=== PATIENT | male | born 1945 | race Caucasian/White ===

== ENCOUNTER 2017-12-08 14:20 | Inpatient (IN) | payer MEDICARE ==
[2017-12-08] VITALS (14 sets, daily range): BP systolic 92–136; BP diastolic 53–67; PULSE 64–86; RESP 14–18; TEMP 99.3; O2SAT 96–100
[~2017-12-08] VITALS: Ht 180.3 cm; Wt 87.5 kg
[2017-12-08] MEDS ORDERED: MIDAZOLAM HCL 5 MG/ML VIAL (1 ML) ONE (14:28)
[2017-12-08 15:06] LABS: AUTOMATED NEUTROPHIL # 12.4 TH/MM3 (1.8-7.7); BASOPHIL # 0.1 TH/MM3 (0-0.2); BASOPHIL % 0.4 % (0.0-2.0); EOSINOPHIL % 0.3 % (0.0-4.0); HEMATOCRIT 42.3 % (39.0-51.0); HEMOGLOBIN 14.3 GM/DL (13.0-17.0); LYMPHOCYTE # 1.2 TH/MM3 (1.0-4.8); MEAN CELL VOLUME 87.1 FL (80.0-100.0); MEAN CORPUSCULAR HEMOGLOBIN 29.4 PG (27.0-34.0); MEAN CORPUSCULAR HGB CONC 33.8 % (32.0-36.0); MEAN PLATELET VOLUME 8.7 FL (7.0-11.0); MONO % 5.2 % (0.0-8.0); MONOCYTE # 0.7 TH/MM3 (0-0.9); NEUT % 86.1 % (16.0-70.0); PLATELET COUNT 173 TH/MM3 (150-450); RED BLOOD COUNT 4.86 MIL/MM3 (4.50-5.90); RED CELL DISTRIBUTION WIDTH 13.7 % (11.6-17.2); WHITE BLOOD COUNT 14.4 TH/MM3 (4.0-11.0)
--- NOTE | 2017-12-08 15:15 | RADRPT ---
EXAM DATE/TIME: 12/08/2017 15:02 [facility] COMPARISON: No previous studies available for comparison. INDICATIONS : Post intubation. MEDICAL HISTORY : Unresponsive. SURGICAL HISTORY : Unresponsive. ENCOUNTER: Initial ACUITY: 1 day PAIN SCORE: Non-responsive. LOCATION: Bilateral chest FINDINGS: Endotracheal tube is present with tip at the alena. Retraction by couple of centimeters would be sug gested. Nasogastric tube coils in the stomach. Perihilar and basilar parenchymal opacities. Cardiac c ontour is grossly satisfactory CONCLUSION: ET tube at the alena. Mild basilar and perihilar infiltrates. Winston Harding MD on December 08, 2017 at 15:13 Board Certified Radiologist. This report was verified electronically.
[2017-12-08 15:22] LABS: ALBUMIN 3.6 GM/DL (3.4-5.0); ALT (GPT) 79 U/L (12-78); AST (GOT) 78 U/L (15-37); BICARBONATE 25.8 MEQ/L (21.0-32.0); BLOOD UREA NITROGEN 15 MG/DL (7-18); CALCIUM 8.5 MG/DL (8.5-10.1); CHLORIDE 107 MEQ/L (98-107); CREATININE 0.88 MG/DL (0.60-1.30); GLOMERULAR FILTRATION RATE 86 ML/MIN (>89); GLUCOSE,RANDOM 139 MG/DL (74-106); SODIUM (NA) 140 MEQ/L (136-145)
[2017-12-08 15:27] LABS: ALKALINE PHOSPHATASE 113 U/L (45-117); TOTAL BILIRUBIN ADULT 0.9 MG/DL (0.2-1.0); TOTAL PROTEIN 7.5 GM/DL (6.4-8.2); TROPONIN I 0.37 NG/ML (0.02-0.05)
[2017-12-08] MEDS ORDERED: GABA300C5 PO (15:38)
[2017-12-08] MEDS ORDERED: LEVO75TA3 PO (15:38)
--- NOTE | 2017-12-08 15:41 | RADRPT ---
EXAM DATE/TIME: 12/08/2017 15:17 [facility] COMPARISON: No previous studies available for comparison. INDICATIONS : Trauma, fall from roof today. RADIATION DOSE: 37.71 CTDIvol (mGy) MEDICAL HISTORY : Non-responsive. SURGICAL HISTORY : Non-responsive. ENCOUNTER: Initial ACUITY: 1 day PAIN SCALE: Non-responsive LOCATION: Bilateral head TECHNIQUE: Multiple contiguous axial images were obtained of the head. Using automated exposure control and adj ustment of the mA and/or kV according to patient size, radiation dose was kept as low as reasonably a chievable to obtain optimal diagnostic quality images. DICOM format image data is available electro nically for review and comparison. FINDINGS: The ventricles are symmetric and normal. Incidental cavum septum pellucida U. There is no evidence of abnormal extra-axial fluid collection, mass or hemorrhage. No brain edema is noted. There is nothing to suggest acute infarction. The there is slight buckling of the nasal bone which may reflect acute fracture injury. There is some layering fluid in the maxillary sinuses and ethmoid and sphenoid air c ells. There is no evidence of skull fracture CONCLUSION: No acute intracranial injury. Nasal bone is fractured and there is fluid in the sinuses. Winston Harding MD on December 08, 2017 at 15:37 Board Certified Radiologist. This report was verified electronically.
[2017-12-08] MEDS ORDERED: MIDAZOLAM HCL 5 MG/ML VIAL (1 ML) IV PUSH ONE (15:45)
[2017-12-08] MEDS: PROPOFOL 1000 MG/100 ML INJ 100 ML IV PRN (16:02)
[2017-12-08 16:19] LABS: PROTHROMBIN TIME - PATIENT 10.5 SEC (9.8-11.6)
[2017-12-08] MEDS ORDERED: MISCELLANEOUS NURSING INFORMATION XX SCH (17:00)
[2017-12-08] MEDS ORDERED: CHLORHEXIDINE GLUCONATE 2 % 1 PACK (2 CLOTHS) TOP PRN (17:00)
[2017-12-08] MEDS ORDERED: ONDANSETRON HCL 4 MG/2 ML VIAL IV PUSH PRN (17:00)
[2017-12-08] MEDS ORDERED: MORPHINE SULFATE 4 MG/ML INJ IV PUSH PRN (17:00)
[2017-12-08] MEDS ORDERED: ENALAPRILAT 1.25 MG/ML VIAL IV PUSH PRN (17:00)
[2017-12-08] MEDS ORDERED: SODIUM CHLORIDE 0.9% FLUSH 10 ML FLUSH IV FLUSH PRN (17:00)
[2017-12-08] MEDS: SODIUM CHLOR 0.9% 1000 ML INJ 1,000 ML IV SCH (17:13)
[2017-12-08] MEDS: PANTOPRAZOLE SODIUM 40 MG VIAL IVP SCH (17:13)
--- NOTE | 2017-12-08 17:29 | PD ---
HPI Chief Complaint: Trauma (Alert) Time Seen by Provider: 14:38 Travel History International Travel<30 days: No Contact w/Intl Traveler<30days: No Traveled to known affect area: No History of Present Illness HPI Patient is a 72-year-old male who is brought in by EMS as a transfer from an outside hospital. Patient was intubated at the outside facility and therefore cannot provide any history. His reports that he was feeling in his normal state of health today. She was in the house when all of a sudden she heard him yelling and when she went out he was on the ground. She says that he told her he was almost at the roof when the ladder he was on slipped and he fell backwards hitting his head. She says he complained of a headache and neck pain and had some bleeding from his head. She drove him to the hospital, because he refused to let her call 911. Apparently once at the hospital, he had an unresponsive episode in the waiting room. He was intubated due to this episode. CAT scans were performed at the outside facility and he was transferred here. [facility] Past Medical History Thyroid Disease: Yes ?: Not Social History Alcohol Use: No Tobacco Use: No Substance Use: No Allergies-Medications (Allergen,Severity, Reaction): Coded Allergies: No Known Allergies (Unverified , 12/08/17) Reported Meds & Prescriptions Reported Meds & Active Scripts Active Reported Gabapentin 300 Mg Cap 300 Mg PO HS Levothyroxine (Levothyroxine Sodium) 75 Mcg Tab 75 Mcg PO DAILY Review of Systems ROS Limitations: Clinical Condition, Intubated Physical Exam Narrative GENERAL: Intubated and sedated. SKIN: Focused skin assessment warm/dry. 5 inch linear laceration to the occiput. HEAD: Atraumatic. Normocephalic. EYES: Pupils equal and round and reactive. No scleral icterus. ENT: Mucous membranes pink and moist. NECK: Trachea midline. No JVD. Cervical collar in place. CARDIOVASCULAR: Regular rate and rhythm. No murmur appreciated. RESPIRATORY: No accessory muscle use. Clear to auscultation. Breath sounds equal bilaterally. GASTROINTESTINAL: Abdomen soft, non-tender, nondistended. MUSCULOSKELETAL: No obvious deformities. No clubbing. No cyanosis. No edema. NEUROLOGICAL: Patient intubated. Seem to move all of his extremities. Data Data Last Documented VS Vital Signs Date Time Temp Pulse Resp B/P (MAP) Pulse Ox O2 Delivery O2 Flow Rate FiO2 12/08/17 16:29 77 18 102/57 (72) 96 Ventilator 100 Orders Orders Midazolam Inj (Versed Inj) (12/08/17 14:28) Electrocardiogram (12/08/17 ) Complete Blood Count With Diff (12/08/17 14:38) Comprehensive Metabolic Panel (12/08/17 14:38) Troponin I (12/08/17 14:38) Lactic Acid (12/08/17 14:38) Creatine Kinase (Cpk) (12/08/17 14:38) Chest, Single Ap (12/08/17 ) Act Partial Throm Time (Ptt) (12/08/17 14:38) Prothrombin Time / Inr (Pt) (12/08/17 14:38) Ct Brain W/O Iv Contrast(Rout) (12/08/17 ) CKMB (12/08/17 14:50) CKMB% (12/08/17 14:50) Midazolam Inj (Versed Inj) (12/08/17 15:45) Propofol 1000 Mg/100 Ml Inj (Diprivan 10 (12/08/17 15:45) Arterial Blood Gas (Abg) (12/08/17 15:58) Admit To Inpatient (12/08/17 ) Vital Signs (Adult) DINO.QSHIFT (12/08/17 16:46) Intake + Output DINO.Q8H (12/08/17 16:46) Neuro Checks DINO.Q1H (12/08/17 16:46) Diet Npo (12/08/17 Dinner) Scd / Varghese / Foot Pump DINO.QSHIFT (12/08/17 16:46) ^ Cervical Collar (12/08/17 16:46) Instruction (12/08/17 16:46) Complete Blood Count With Diff (12/09/17 06:00) Comprehensive Metabolic Panel (12/09/17 06:00) Chest, Single Ap (12/09/17 ) Sodium Chlor 0.9% 1000 Ml Inj (Ns 1000 M (12/08/17 16:46) Sodium Chloride 0.9% Flush (Ns Flush) (12/08/17 17:00) Morphine Inj (Morphine Inj) (12/08/17 17:00) Enalaprilat Inj (Vasotec Inj) (12/08/17 17:00) Ondansetron Inj (Zofran Inj) (12/08/17 17:00) Pantoprazole Inj (Protonix Inj) (12/08/17 17:00) Consult Engraver Seals (12/08/17 ) ^ Initiate Protocol (12/08/17 16:46) Instruction (12/08/17 16:46) Misc Nursing Information (12/08/17 17:00) Chlorhexidine 2% Cloth (Chlorhexidine 2% (12/09/17 04:00) Chlorhexidine 2% Cloth (Chlorhexidine 2% (12/08/17 17:00) Mrsa Pcr Surveillance (12/08/17 16:46) Inpatient Certification (12/08/17 ) Consult Archie Gts (12/08/17 ) Mri Brain W&W/O Contrast (12/08/17 ) Admit Order (Ed Use Only) (12/08/17 ) Labs Laboratory Tests Test 12/08/17 14:50 12/08/17 15:50 12/08/17 15:58 White Blood Count 14.4 TH/MM3 Red Blood Count 4.86 MIL/MM3 Hemoglobin 14.3 GM/DL Hematocrit 42.3 % Mean Corpuscular Volume 87.1 FL Mean Corpuscular Hemoglobin 29.4 PG Mean Corpuscular Hemoglobin Concent 33.8 % Red Cell Distribution Width 13.7 % Platelet Count 173 TH/MM3 Mean Platelet Volume 8.7 FL Neutrophils (%) (Auto) 86.1 % Lymphocytes (%) (Auto) 8.0 % Monocytes (%) (Auto) 5.2 % Eosinophils (%) (Auto) 0.3 % Basophils (%) (Auto) 0.4 % Neutrophils # (Auto) 12.4 TH/MM3 Lymphocytes # (Auto) 1.2 TH/MM3 Monocytes # (Auto) 0.7 TH/MM3 Eosinophils # (Auto) 0.0 TH/MM3 Basophils # (Auto) 0.1 TH/MM3 CBC Comment AUTO DIFF Differential Comment AUTO DIFF CONFIRMED Platelet Estimate NORMAL Platelet Morphology Comment CLUMPED Blood Urea Nitrogen 15 MG/DL Creatinine 0.88 MG/DL Random Glucose 139 MG/DL Total Protein 7.5 GM/DL Albumin 3.6 GM/DL Calcium Level 8.5 MG/DL Alkaline Phosphatase 113 U/L Aspartate Amino Transf (AST/SGOT) 78 U/L Alanine Aminotransferase (ALT/SGPT) 79 U/L Total Bilirubin 0.9 MG/DL Sodium Level 140 MEQ/L Potassium Level 3.6 MEQ/L Chloride Level 107 MEQ/L Carbon Dioxide Level 25.8 MEQ/L Anion Gap 7 MEQ/L Estimat Glomerular Filtration Rate 86 ML/MIN Lactic Acid Level 1.6 mmol/L Total Creatine Kinase 331 U/L Creatine Kinase MB 6.1 NG/ML Creatine Kinase MB % 1.8 % Troponin I 0.37 NG/ML Prothrombin Time 10.5 SEC Prothromb Time International Ratio 1.0 RATIO Activated Partial Thromboplast Time 18.7 SEC Blood Gas Puncture Site RT RADIAL Blood Gas Patient Temperature 98.6 Blood Gas HCO3 25 mmol/L Blood Gas Base Excess 0.6 mmol/L Blood Gas Oxygen Saturation 97 % Arterial Blood pH 7.39 Arterial Blood Partial Pressure CO2 43 mmHg Arterial Blood Partial Pressure O2 198 mmHG Arterial Blood Oxygen Content 19.5 Vol % Arterial Blood Carboxyhemoglobin 0.2 % Arterial Blood Methemoglobin 1.4 % Blood Gas Hemoglobin 14.0 G/DL Oxygen Delivery Device VENTILATOR Blood Gas Ventilator Setting Blood Gas Inspired Oxygen 100 % MDM Medical Decision Making Medical Screen Exam Complete: Yes Emergency Medical Condition: Yes Interpretation(s) ECG shows sinus rhythm at a rate of 93, no ST elevation or depression Differential Diagnosis Traumatic injury versus stroke versus ND versus electrolyte abnormality versus infection Narrative Course Patient is a 72-year-old male who is brought in as a transfer from an outside facility. Patient was intubated at the outside facility. On arrival, sedation was stopped during the transfer and he was seen at patient moved all of his extremities. Patient originally was on a Cardene drip as well as a propofol drip from the outside facility. The Cardene drip was discontinued on arrival as patient was hypotensive. He never became hypertensive again. He was given Versed for sedation and continued on propofol. ET tube was too deep, this was pulled back. CT head reordered. Repeat scan shows a nasal bone fracture, no other acute abnormalities. Labs here show an elevated troponin. This was not done at the previous hospital , so nothing to compare to. Laceration repaired. Patient admitted for further management. Procedures Procedure Narrative LACERATION LOCATION: Back of head LENGTH: 5 inches NUMBER OF STITCHES/GENEVIEVE: 6 REPAIR: The area of the laceration was prepped with Betadine and sterilely draped. The wound was copiously irrigated and explored without evidence of foreign body, tendon injury or neurovascular injury. The wound was closed using genevieve. This was a single layer repair. Patient tolerated the procedure well. Diagnosis Primary Impression: Trauma Additional Impression: Altered mental status Qualified Codes: R41.82 - Altered mental status, unspecified Admitting Information Admitting Physician Requests: Admit Jenn Lainez MD Dec 08, 2017 17:29
[2017-12-08] MEDS ORDERED: fentaNYL DRIP 250 ML IV PRN (18:45)
--- NOTE | 2017-12-08 19:12 | RADRPT ---
EXAM DATE/TIME: 12/08/2017 18:39 [facility] COMPARISON: CT BRAIN W/O CONTRAST, December 08, 2017, 15:17. INDICATIONS : Fall, head trauma. MEDICAL HISTORY : None. SURGICAL HISTORY : Cholecystectomy. Rotator cuff, right knee repair. ENCOUNTER: Initial ACUITY: 1 day PAIN SCORE: 0/10 LOCATION: cranial TECHNIQUE: Multiplanar, multisequence MRI of the brain was performed without contrast. FINDINGS: CEREBRUM: The ventricles are normal for age. No evidence of midline shift, mass lesion, hemorrhage or acute in farction. No extraaxial fluid collections are seen. The pituitary gland and suprasellar cistern are normal in configuration. WHITE MATTER: Mild patchy chronic flair signal abnormality in the periventricular white matter of the posterolatera l hemispheres. POSTERIOR FOSSA: The cerebellum and brainstem are intact. The 4th ventricle is midline. The cerebellopontine angle is unremarkable. The cerebellar tonsils are normal in position. DIFFUSION IMAGING: No focal areas of restricted diffusion are seen. No evidence of acute infarction. EXTRACRANIAL: There is a posterior parietal scalp laceration post stapling. An approximately 13 mm thick adjacent s calp hematoma is present. The skull appears intact. CONCLUSION: 1. High/posterior parietal scalp laceration and scalp hematoma. 2. No acute intracranial abnormality. Intact skull. 3. Mild chronic white matter changes. Winston Butt MD on December 08, 2017 at 19:07 Board Certified Radiologist. This report was verified electronically.
--- NOTE | 2017-12-08 20:57 | HHI.CCPN ---
Subjective Brief History 72 year old fell of the ladder this p.m. Went to [facility] and there collapsed. Was intubated ventilated and transferred to us under auspices of trauma and head injury. Patrient does not have any acute intracranial abnormality on either CT or MRI. He is moving all extremities on sedation decrease, but doesn't follow commands. CKMB up and troponin elevated. I believe this to have been likely and originally a cardiac event. Spoken to DR Vargas. EKG / ECHO pending. Will keep on the vent till we get a better picture. 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 Objective Vital Signs Date Time Temp Pulse Resp B/P (MAP) Pulse Ox O2 Delivery O2 Flow Rate FiO2 12/08/17 19:37 40 12/08/17 19:30 100 12/08/17 18:45 71 18 135/62 (86) Ventilator Result Diagram: 12/08/17 1450 12/08/17 1450 Other Results Laboratory Tests Test 12/08/17 15:58 Blood Gas Puncture Site RT RADIAL Blood Gas Patient Temperature 98.6 Blood Gas HCO3 25 mmol/L (22-26) Blood Gas Base Excess 0.6 mmol/L (-2-2) Blood Gas Oxygen Saturation 97 % (90-100) Arterial Blood pH 7.39 (7.380-7.420) Arterial Blood Partial Pressure CO2 43 mmHg (38-42) Arterial Blood Partial Pressure O2 198 mmHG (61-120) Arterial Blood Oxygen Content 19.5 Vol % (12.0-20.0) Arterial Blood Carboxyhemoglobin 0.2 % (0-4) Arterial Blood Methemoglobin 1.4 % (0-2) Blood Gas Hemoglobin 14.0 G/DL (12.0-16.0) Oxygen Delivery Device VENTILATOR Blood Gas Ventilator Setting Blood Gas Inspired Oxygen 100 % Imaging Last [address] 12/08/17 0000 Signed Impressions: Service Date/Time: Friday, December 08, 2017 15:17 - CONCLUSION: No acute intracranial injury. Nasal bone is fractured and there is fluid in the sinuses. Winston Harding MD Chest X-Ray 12/08/17 0000 Signed Impressions: Service Date/Time: Friday, December 08, 2017 15:02 - CONCLUSION: ET tube at the alena. Mild basilar and perihilar infiltrates. Winston Harding MD Brain MRI 12/08/17 0000 Signed Impressions: Service Date/Time: Friday, December 08, 2017 18:39 - CONCLUSION: 1. High/posterior parietal scalp laceration and scalp hematoma. 2. No acute intracranial abnormality. Intact skull. 3. Mild chronic white matter changes. Winston Butt MD Exam [employer] Patient intubated ventilated and sedated MRI of the brain and CT of the brain are negative for acute injury or acute pathology While the patient had fallen off the ladder the only head injury is a laceration of the skin Patient currently on propofol and fentanyl until we figure out the reason why patient collapsed and became unconscious Hemodynamic/Cardiac Hemodynamically patient is currently stable Elevated CK-MB and troponins Suspect a cardiac event either in form of arrhythmia, sick sinus syndrome or possible [place] Discussed with Dr. Serene Vargas and cardiac full workup is pending Pulmonary/Respiratory Bilateral breath sounds lungs clear Patient on assist control ventilation 50% FiO2 with very good PO2 FiO2 gradient Abdomen/GI Nutrition Abdomen soft no signs of injuries no rebound no guarding or masses Renal/I&O Renal function well-preserved Hematologic Slight elevation of the white count with left shift but hemoglobin stable Assessment and Plan Attestation Patient currently in progress of workup but it all appears to be medical in nature as far as we can see right now Barring any surprises will extubate patient in the morning Critical care time 42 minutes Basilio Banda MD Dec 08, 2017 20:57
[2017-12-08 22:55] LABS: TROPONIN I 1.13 NG/ML (0.02-0.05)
[2017-12-09] VITALS (14 sets, daily range): BP systolic 102–148; BP diastolic 51–65; PULSE 62–79; RESP 14–26; TEMP 98.7–99.8; O2SAT 92–100
[2017-12-09] MEDS: SODIUM CHLOR 0.9% 1000 ML INJ 1,000 ML IV SCH (02:46)
[2017-12-09] MEDS: PROPOFOL 1000 MG/100 ML INJ 100 ML IV PRN (03:52)
[2017-12-09] MEDS ORDERED: CHLORHEXIDINE GLUCONATE 2 % 1 PACK (2 CLOTHS) TOP SCH (04:00)
[2017-12-09 04:36] LABS: AUTOMATED NEUTROPHIL # 7.6 TH/MM3 (1.8-7.7); BASOPHIL % 0.3 % (0.0-2.0); EOSINOPHIL % 0.2 % (0.0-4.0); HEMATOCRIT 40.2 % (39.0-51.0); HEMOGLOBIN 13.5 GM/DL (13.0-17.0); LYMPH % 14.3 % (9.0-44.0); LYMPHOCYTE # 1.4 TH/MM3 (1.0-4.8); MEAN CELL VOLUME 88.2 FL (80.0-100.0); MEAN CORPUSCULAR HEMOGLOBIN 29.7 PG (27.0-34.0); MEAN CORPUSCULAR HGB CONC 33.6 % (32.0-36.0); MEAN PLATELET VOLUME 8.3 FL (7.0-11.0); MONO % 7.4 % (0.0-8.0); MONOCYTE # 0.7 TH/MM3 (0-0.9); NEUT % 77.8 % (16.0-70.0); PLATELET COUNT 159 TH/MM3 (150-450); RED BLOOD COUNT 4.56 MIL/MM3 (4.50-5.90); RED CELL DISTRIBUTION WIDTH 13.9 % (11.6-17.2); WHITE BLOOD COUNT 9.7 TH/MM3 (4.0-11.0)
[2017-12-09 05:00] LABS: ALBUMIN 3.2 GM/DL (3.4-5.0); AST (GOT) 43 U/L (15-37); BICARBONATE 26.5 MEQ/L (21.0-32.0); BLOOD UREA NITROGEN 13 MG/DL (7-18); CALCIUM 8.5 MG/DL (8.5-10.1); CHLORIDE 108 MEQ/L (98-107); CREATININE 0.81 MG/DL (0.60-1.30); GLOMERULAR FILTRATION RATE 94 ML/MIN (>89); GLUCOSE,RANDOM 98 MG/DL (74-106); SODIUM (NA) 142 MEQ/L (136-145)
[2017-12-09 05:07] LABS: ALKALINE PHOSPHATASE 88 U/L (45-117); ALT (GPT) 60 U/L (12-78); TOTAL BILIRUBIN ADULT 1.1 MG/DL (0.2-1.0); TOTAL PROTEIN 6.8 GM/DL (6.4-8.2)
[2017-12-09 05:20] LABS: TROPONIN I 0.74 NG/ML (0.02-0.05)
--- NOTE | 2017-12-09 05:28 | RADRPT ---
EXAM DATE/TIME: 12/09/2017 04:36 [facility] COMPARISON: CHEST SINGLE AP, December 08, 2017, 15:02. INDICATIONS : Shortness of breath. MEDICAL HISTORY : None. SURGICAL HISTORY : Cholecystectomy. Rotator cuff, right knee repair. ENCOUNTER: Subsequent ACUITY: 2 days PAIN SCORE: Non-responsive. LOCATION: Bilateral chest FINDINGS: The cardiac silhouette is normal in transverse diameter. There is prominence of the central pulmonary vasculature with indistinct vascular margins compatible with vascular congestion but no evidence of overt failure. Endotracheal tube is in good position above the alena. CONCLUSION: 1. Cardiomegaly and findings of vascular congestion without overt failure. The findings have worsened when compared with the prior examination. Jg Watson MD on December 09, 2017 at 5:26 Board Certified Radiologist. This report was verified electronically.
--- NOTE | 2017-12-09 05:58 | HHI.CCPN ---
Subjective Brief History 72 year old fell of the ladder this p.m. Went to [facility] and there collapsed. Was intubated ventilated and transferred to us under auspices of trauma and head injury. Patrient does not have any acute intracranial abnormality on either CT or MRI. He is moving all extremities on sedation decrease, but doesn't follow commands. CKMB up and troponin elevated. I believe this to have been likely and originally a cardiac event. Spoken to DR Vargas. EKG / ECHO pending. Will keep on the vent till we get a better picture. Medical principal cloud architect was to busy to accept the consult tonight due to several codes. 24 Hour Review/Hospital Course 12/09/2017 Patient has been stable throughout the night Remains sedated on propofol fentanyl Hemodynamically stable As noted in my initial impression this patient had a cardiac event and then fell off the ladder rather than the other way around Rising troponin levels Discussed with Dr. Vargas Patient remains on assist control ventilation and will extubate patient today Renal function well-preserved Discussed with his Objective Vital Signs Date Time Temp Pulse Resp B/P (MAP) Pulse Ox O2 Delivery O2 Flow Rate FiO2 12/09/17 05:30 98 40 12/09/17 04:00 63 12/09/17 04:00 99.6 14 102/51 (68) 12/08/17 18:45 Ventilator Intake and Output 12/09/17 12/09/17 12/10/17 08:00 16:00 00:00 Intake Total 1100 ml Balance 1100 ml Result Diagram: 12/09/17 0354 12/09/17 0354 Other Results Laboratory Tests Test 12/08/17 15:58 12/08/17 22:47 Blood Gas Puncture Site RT RADIAL RT RADIAL Blood Gas Patient Temperature 98.6 98.6 Blood Gas HCO3 25 mmol/L (22-26) 24 mmol/L (22-26) Blood Gas Base Excess 0.6 mmol/L (-2-2) 0.5 mmol/L (-2-2) Blood Gas Oxygen Saturation 97 % (90-100) 96 % (90-100) Arterial Blood pH 7.39 (7.380-7.420) 7.42 (7.380-7.420) Arterial Blood Partial Pressure CO2 43 mmHg (38-42) 39 mmHg (38-42) Arterial Blood Partial Pressure O2 198 mmHG (61-120) 113 mmHg (61-120) Arterial Blood Oxygen Content 19.5 Vol % (12.0-20.0) 19.4 Vol % (12.0-20.0) Arterial Blood Carboxyhemoglobin 0.2 % (0-4) 0.5 % (0-4) Arterial Blood Methemoglobin 1.4 % (0-2) 1.5 % (0-2) Blood Gas Hemoglobin 14.0 G/DL (12.0-16.0) 14.3 G/DL (12.0-16.0) Oxygen Delivery Device VENTILATOR VENTILATOR Blood Gas Ventilator Setting SEE COMMENT Blood Gas Inspired Oxygen 100 % 40 % Exam ENDOSCOPY TECHNICIAN Patient has no intracranial injury on either CT scan or MRI Hemodynamic/Cardiac Hemodynamically stable Rising troponin levels Pulmonary/Respiratory Bilateral breath sounds on assist control ventilation to be extubated today Patient was initially intubated and [place] when he collapsed so I kept him through the night on the ventilator to we figure out what is going on Patient is now ready to extubate Abdomen/GI Nutrition Abdomen soft Renal/I&O Renal function preserved Assessment and Plan Attestation Critical care 35 minutes Basilio Banda MD Dec 09, 2017 05:58
[2017-12-09] MEDS ORDERED: LEVOTHYROXINE SODIUM 100 MCG VIAL IV PUSH SCH (06:00)
[2017-12-09] MEDS ORDERED: oxyCODONE/ACETAMINOPHEN 5 MG/325 MG TAB PO PRN (06:15)
[2017-12-09] MEDS ORDERED: FUROSEMIDE 40 MG/4 ML VIAL IV PUSH SCH (06:45)
[2017-12-09] MEDS: LEVOTHYROXINE SODIUM 75 MCG TAB NG SCH (07:47)
[2017-12-09] MEDS: ASPIRIN 325 MG TAB PO SCH (07:47)
--- NOTE | 2017-12-09 08:20 | MH ---
cc: Angelo Santana MD DATE OF ADMISSION: 12/08/2017 HISTORY OF PRESENT ILLNESS: This is a 72-year-old male who was on a ladder approximately 8 feet in the air. By reports, the patient fell. He was ambulatory at the scene. He was taken to an outside hospital by private vehicle. While being admitted, the patient was noted to become unresponsive. He was intubated in the emergency room and transferred to [place] for further management. According to the patient's , he was complaining of headache and states he hit his head hard. He had no other complaints.. REVIEW OF SYSTEMS: All reviews of systems are unobtainable. PAST MEDICAL HISTORY: According to the patient's , he has hypothyroidism and is on levothyroxine. ALLERGIES: NO KNOWN ALLERGIES. PHYSICAL EXAMINATION: GENERAL: He is lying in bed, intubated, sedated. HEENT: Pupils are equal and reactive. NECK: Trachea is midline. RESPIRATIONS: Clear. CARDIOVASCULAR: Regular. GASTROINTESTINAL: Soft, nontender. MUSCULOSKELETAL: No deformities. NEUROLOGIC: GCS of 3T. IMAGING STUDIES: CT of the patient's head: No intracranial hemorrhage. CT of the cervical spine: No fracture. CT of the chest: No traumatic injury. CT of the abdomen and pelvis: No visceral injury. LABORATORY DATA: The patient's troponin is 0.37. ASSESSMENT AND PLAN: This is a patient status post fall with questionable cause of the fall. The patient's cardiac enzymes are elevated. We will get serial enzymes. We will get an MRI of the patient's brain. The patient is being admitted to [facility]. We will monitor his neurological status and respiratory status and provide pain management. Angleo Santana MD JLKlaus/TESHA , 11:08 PM , 08:19 AM
[2017-12-09] MEDS: MAGNESIUM HYDROXIDE SUSP 30 ML CUP PO SCH ×2 (09:00→20:52)
[2017-12-09] MEDS: DOCUSATE SODIUM 50 MG/SENNA 8.6 MG TAB PO SCH ×2 (09:15→20:52)
--- NOTE | 2017-12-09 10:09 | ECHRPT ---
Indication: fall troponins rise CONCLUSIONS Normal left ventricular size. Moderate concentric left ventricular hypertrophy. The left ventricular systolic function is low normal with an estimated ejection fraction in the rang e of 50- 55%. BP: / HR: Rhythm: MEASUREMENTS (Male / Female) Normal Values Technical Quality: 2D ECHO LV Diastolic Diameter PLAX 3.7 cm 4.2 - 5.9 / 3.9 - 5.3 cm LV Systolic Diameter PLAX 2.8 cm IVS Diastolic Thickness 1.4 cm 0.6 - 1.0 / 0.6 - 0.9 cm LVPW Diastolic Thickness 0.7 cm 0.6 - 1.0 / 0.6 - 0.9 cm LV Relative Wall Thickness 0.6 RV Internal Dim ED PLAX 2.0 cm DOPPLER Mitral E Point Velocity 77.5 cm/s Mitral A Point Velocity 116.0 cm/s Mitral E to A Ratio 0.7 TR Peak Velocity 193.0 cm/s TR Peak Gradient 14.9 mmHg Right Atrial Pressure 5.0 mmHg Pulmonary Artery Systolic Pressu 19.9 mmHg Right Ventricular Systolic Press 19.9 mmHg FINDINGS LEFT VENTRICLE Normal left ventricular size. Moderate concentric left ventricular hypertrophy. The left ventricular systolic function is low normal with an estimated ejection fraction in the rang e of 50- 55%. RIGHT VENTRICLE Normal right ventricular size and systolic function. LEFT ATRIUM The left atrial size is normal. RIGHT ATRIUM The right atrial size is normal. ATRIAL SEPTUM Normal atrial septal thickness without atrial level shunting by limited color doppler interrogation. AORTA The aortic root and proximal ascending aorta are normal in size on limited imaging. MITRAL VALVE Structurally normal mitral valve. No mitral valve stenosis or regurgitation. AORTIC VALVE Trileaflet aortic valve. No aortic valve stenosis or regurgitation. TRICUSPID VALVE Structurally normal tricuspid valve. No tricuspid valve stenosis or regurgitation. PULMONARY VALVE No pulmonary valve regurgitation or stenosis. VESSELS The inferior vena cava is normal in size. PERICARDIUM No pericardial effusion. Serene Vargas MD, FACC (Electronically Signed) Final Date:09 December 2017 10:08
--- NOTE | 2017-12-09 10:39 | MB ---
cc: Serene Vargas MD DATE: 12/09/2017 REASON FOR CONSULTATION: Elevated troponin. HISTORY OF PRESENT ILLNESS: Mr. Torres is a 72-year-old man who denies any significant cardiac history. He was up on a ladder going onto his roof when the ladder gave out and he apparently fell on his buttocks and hit his head. He was taken to [facility] and became unresponsive while there. He was transferred to [place] and after obtaining labs that showed an elevated troponin, cardiology was consulted. The patient this morning denies any prodromal cardiac complaints: He specifically denied any chest pain, shortness of breath or palpitations. PAST MEDICAL HISTORY: Significant for hypothyroidism. OUTPATIENT MEDICATIONS: Levothyroxine. ALLERGIES: NO KNOWN DRUG ALLERGIES. REVIEW OF SYSTEMS: The patient does now have some back pain and other than this and what is mentioned in the HPI, all 12 systems are negative. PHYSICAL EXAMINATION: VITAL SIGNS: 99.1, 75, 20, 127/58. GENERAL: He is a well-appearing man, who is in no apparent distress. NECK: Free from JVD. LUNGS: Bilaterally clear to auscultation. CARDIOVASCULAR: He has a normal S1 and S2. I did not appreciate any murmurs, rubs or gallops. ABDOMEN: Soft. EXTREMITIES: Free from edema. LABORATORY DATA: Significant for peak troponin of 1.13. The CPK is 434 and MB 9.8 with a CK-MB percent of 2.3. Echocardiogram shows normal LV function. EKG shows normal sinus rhythm. IMPRESSION: Elevated troponin - this occurs after a fall off of a ladder. The CK-MB percent is negative. Thus, I think this is elevated secondary to the skeletal muscle fraction being higher, not any cardiac event. He is otherwise stable and denies any cardiac complaints. Thus, I think it is reasonable for him to be discharged from a cardiac perspective. Serene Vargas MD BAB/TL , 10:17 AM , 10:38 AM
[2017-12-09] MEDS: IBUPROFEN 600 MG TAB PO PRN ×2 (12:38→17:47)
[2017-12-09] MEDS ORDERED: MAGN30S PO (13:17)
[2017-12-09] MEDS ORDERED: PERI PO (13:17)
[2017-12-09] MEDS ORDERED: IBUP-232 PO (13:18)
[2017-12-09] MEDS ORDERED: ASA325 PO (13:18)
--- NOTE | 2017-12-09 15:33 | EKG ---
Date Performed: 12/08/2017 Time Performed: 14:52:50 PTAGE: 72 years EKG: NORMAL Sinus rhythm NONSPECIFIC T-WAVE ABNORMALITY Intraventricular conduction delay BORDERLINE ECG NO PREVIOUS TRACING DOCTOR: Serene Vargas Interpretating Date/Time 12/09/2017 15:58:45
--- NOTE | 2017-12-09 15:35 | EKG ---
Date Performed: 12/08/2017 Time Performed: 21:01:58 PTAGE: 72 years EKG: NORMAL Sinus rhythm INTRAVENTRICULAR CONDUCTION DELAY Nonspecific ST-T wave changes Since previous tracing, no significa nt change noted BORDERLINE ECG PREVIOUS TRACING : 12/08/2017 14.52 DOCTOR: Serene Vargas Interpretating Date/Time 12/09/2017 15:33:04
[2017-12-09] MEDS: PANTOPRAZOLE SODIUM 40 MG VIAL IVP SCH (17:46)
[2017-12-10] VITALS (7 sets, daily range): BP systolic 104–114; BP diastolic 50–65; PULSE 65–79; RESP 17–18; TEMP 98.5–98.6; O2SAT 93–95
[2017-12-10] MEDS: IBUPROFEN 600 MG TAB PO PRN ×2 (06:03→12:55)
[2017-12-10] MEDS: LEVOTHYROXINE SODIUM 75 MCG TAB NG SCH (06:03)
[2017-12-10] MEDS: MAGNESIUM HYDROXIDE SUSP 30 ML CUP PO SCH (08:57)
[2017-12-10] MEDS: ASPIRIN 325 MG TAB PO SCH (08:57)
[2017-12-10] MEDS: DOCUSATE SODIUM 50 MG/SENNA 8.6 MG TAB PO SCH (08:58)
--- NOTE | 2017-12-10 13:40 | RADRPT ---
EXAM DATE/TIME: 12/10/2017 13:20 [place] COMPARISON: No previous studies available for comparison. INDICATIONS : Patient fell off ladder on Sunday, left shoulder pain. MEDICAL HISTORY : None. SURGICAL HISTORY : Cholecystectomy. Rotator cuff, right knee repair. ENCOUNTER: Initial ACUITY: 3 days PAIN SCORE: 7/10 LOCATION: Left shoulder. FINDINGS: Multiple view examination of the left shoulder demonstrates no evidence of fracture or dislocation. Degenerative changes. No fracture. Chondrocalcinosis. Bony mineralization is normal. CONCLUSION: 1. Chronic changes. 2. No acute fracture. Todd Barajas MD on December 10, 2017 at 13:37 Board Certified Radiologist. This report was verified electronically.
--- NOTE | 2017-12-10 16:14 | HHI.DS ---
Discharge Summary Admission Date Dec 08, 2017 at 16:59 Discharge Date: Dec 10, 2017 Admitting Diagnosis Trauma (1) Fall ICD Codes: W19.XXXA - Unspecified fall, initial encounter Diagnosis: Principal Status: Acute Brief History Fall. CBC/BMP: 12/09/17 0354 12/09/17 0354 Significant Findings Laboratory Tests Test 12/08/17 14:50 12/08/17 15:50 12/08/17 15:58 12/08/17 20:50 White Blood Count 14.4 TH/MM3 (4.0-11.0) Neutrophils (%) (Auto) 86.1 % (16.0-70.0) Lymphocytes (%) (Auto) 8.0 % (9.0-44.0) Neutrophils # (Auto) 12.4 TH/MM3 (1.8-7.7) Platelet Morphology Comment CLUMPED (NORMAL) Random Glucose 139 MG/DL (74-106) Aspartate Amino Transf (AST/SGOT) 78 U/L (15-37) Alanine Aminotransferase (ALT/SGPT) 79 U/L (12-78) Estimat Glomerular Filtration Rate 86 ML/MIN (>89) Total Creatine Kinase 331 U/L (39-308) Creatine Kinase MB 6.1 NG/ML (0.5-3.6) Troponin I 0.37 NG/ML (0.02-0.05) Activated Partial Thromboplast Time 18.7 SEC (24.3-30.1) Arterial Blood Partial Pressure CO2 43 mmHg (38-42) Arterial Blood Partial Pressure O2 198 mmHG (61-120) Test 12/08/17 21:40 12/08/17 22:47 12/09/17 03:54 Total Creatine Kinase 434 U/L (39-308) 378 U/L (39-308) Creatine Kinase MB 9.8 NG/ML (0.5-3.6) 6.1 NG/ML (0.5-3.6) Troponin I 1.13 NG/ML (0.02-0.05) 0.74 NG/ML (0.02-0.05) Neutrophils (%) (Auto) 77.8 % (16.0-70.0) Albumin 3.2 GM/DL (3.4-5.0) Aspartate Amino Transf (AST/SGOT) 43 U/L (15-37) Total Bilirubin 1.1 MG/DL (0.2-1.0) Chloride Level 108 MEQ/L (98-107) Imaging Last Impressions Shoulder X-Ray 12/10/17 0000 Signed Impressions: Service Date/Time: Sunday, December 10, 2017 13:20 - CONCLUSION: 1. Chronic changes. 2. No acute fracture. Todd Barajas MD Chest X-Ray 12/09/17 0000 Signed Impressions: Service Date/Time: Saturday, December 09, 2017 04:36 - CONCLUSION: 1. Cardiomegaly and findings of vascular congestion without overt failure. The findings have worsened when compared with the prior examination. Jg Watson MD Head CT 12/08/17 0000 Signed Impressions: Service Date/Time: Friday, December 08, 2017 15:17 - CONCLUSION: No acute intracranial injury. Nasal bone is fractured and there is fluid in the sinuses. Winston Harding MD Brain MRI 12/08/17 0000 Signed Impressions: Service Date/Time: Friday, December 08, 2017 18:39 - CONCLUSION: 1. High/posterior parietal scalp laceration and scalp hematoma. 2. No acute intracranial abnormality. Intact skull. 3. Mild chronic white matter changes. Winston Butt MD PE at Discharge GENERAL: This is a 72-year-old male lying in bed. No distress noted. SKIN: Warm and dry. HEAD: Atraumatic. Normocephalic. EYES: PERRLA ENT: No nasal bleeding or discharge. Mucous membranes pink and moist. NECK: Trachea midline. No JVD. CARDIOVASCULAR: Regular rate and rhythm. RESPIRATORY: No accessory muscle use. Lungs are clear to auscultation. Breath sounds equal bilaterally. No distress or dyspnea. GASTROINTESTINAL: BS + x 4 quads. Abdomen soft, non-tender, nondistended. MUSCULOSKELETAL: Extremities without cyanosis, or edema. + peripheral pulses x 4 extremities. Warm with good capillary refill and sensation. POND. NEUROLOGICAL: Awake and alert. Normal speech and pattern. Hospital Course [place]: This is a 72 year old male who sustained a fall from a ladder. The ladder slipped out from under him. He hit his head. His drove him to the hospital as he refused to call 911. He had an unresponsive episode in the waiting room. He was intubated. He was a trauma transfer from an outside facility. Questionable cardiac event. INJURIES: Back of head lac (6 genevieve) Nasal bone fx Procedures: 12/08: Intubated at outside facility. 12/09: Extubated Consults: Cardiology. OMFS. Case management. Patient complaint of left shoulder pain -he has a history of left rotator cuff repair in the past. Obtain dedicated shoulder x-ray -it is negative for any fracture. Recommended patient follow up with his own orthopedic surgeon outpatient. Patient was evaluated by taker off, and he has been cleared for discharge. The patient is now tolerating a po diet. Eating and drinking well. Pain is being managed well with PO pain medications, patient may continue with Tylenol/Motrin for pain. We have recommended to patient to continue with stool softeners to prevent constipation. Pt has been participating in PT and OT while admitted at [facility] and has been ambulating with their assistance and independently . No PT needs at home. All follow up appointments have been provided and discussed with the patient. It is recommended that the patient keeps all his follow up appointments for continued recovery. Patient's condition and plan of care discussed with collaborating trauma surgeon. He is agreeable to plan for discharge today. Therefore, the patient is stable to be safely discharged home from a trauma surgery standpoint. Thank you for allowing us to participate in his care. We wish Juan the best in his recovery. Back of head lac (6 genevieve) Concussion Nasal bone fx CT brain negative for any intracranial hemorrhage OMFS consulted Nonoperative management Follow-up with OMFS in patient's home town for follow-up Scalp staple removal in 10-12 days Wash gently with soap and water. Pat dry. Leave open to air. Questionable cardiac event Cardiology consulted and assisting in management and care EKG shows normal sinus rhythm Echo with EF = 50-55%. Normal LV function. 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 was a cardiac event Cardiology has cleared the patient for discharge Follow-up with cardiology in patient's home town after discharge Left shoulder pain History of rotator cuff repair in the past Dedicated left shoulder x-ray is negative for any fracture Encourage patient to follow-up with orthopedic surgeon in his hometown Pt Condition on Discharge: Stable Discharge Disposition: Discharge Home Discharge Instructions DIET: Follow Instructions for: Heart Healthy Diet Activities you can perform: Regular-No Restrictions Activities to Avoid: Concussion Sports, Contact Sports, Lifting/Bending, Prolonged Standing, Strenuous Activity, Driving Other Activity Instructions: F/U with cardiology, orthopedics and OMFS in their hometown. Return to PCP for scalp staple removal in 10-12 days. Aleisha Kim Dec 10, 2017 16:14
== END 2017-12-10 15:26 | disposition home or self-care (01) | DRG 90 ==
LOC: NEPE 14:20 → NEDA 16:59 → N03B 20:23 → N06B 12-09 12:47
PROVIDERS: ADMIT Surgery; ATTEND Surgery
PROC: 0HQ0XZZ Repair Scalp Skin, External Approach (ICD-10-PCS; principal; 2017-12-08)
DX: S06.0X0A Concussion without loss of consciousness, initial encounter (principal); I95.9 Hypotension, unspecified; S02.2XXA Fracture of nasal bones, initial encounter for closed fracture; E03.9 Hypothyroidism, unspecified; S01.81XA Laceration without foreign body of other part of head, initial encounter; W11.XXXA Fall on and from ladder, initial encounter; Y93.9 Activity, unspecified; Y92.008 Other place in unspecified non-institutional (private) residence as the place of occurrence of the external cause; Y99.9 Unspecified external cause status; R41.82 Altered mental status, unspecified; M25.512 Pain in left shoulder; R74.8 Abnormal levels of other serum enzymes
CPT/HCPCS: 12005; 36600; 70450; 70551; 71045; 73030; 80053; 82550; 82552; 82805; 83605; 84484; 85025; 85610; 85730; 87641; 93005; 93306; 94002; 94003; 94150; 96365; 96375; C9113; J1940; J2250; J3010; J7030